=== PATIENT | female | born 1950 | race Caucasian/White ===

== ENCOUNTER → 2024-07-01 09:38 | Outpatient (REF) | payer MEDICARE, SELFPAY | LOC: HWRAD 09:38 | PROVIDERS: ATTENDING PHYSICIAN Physician Assistant Medical | DX: S09.90XA Unspecified injury of head, initial encounter (principal); R51.9 Headache, unspecified | CPT/HCPCS: 70450 ==

== ENCOUNTER → 2025-02-09 10:38 | Outpatient (REF) | payer MEDICARE, SELFPAY | LOC: RAD 10:38 | PROVIDERS: ATTENDING PHYSICIAN Physician Assistant | DX: J20.9 Acute bronchitis, unspecified (principal) | CPT/HCPCS: 71046 ==